=== PATIENT | female | born 1990 | race Caucasian/White ===

== ENCOUNTER 2018-09-17 10:27 | Emergency (ER) | payer BC ==
[~2018-09-17] VITALS: Ht 177.8 cm; Wt 56.8 kg
[~2018-09-17 10:27] MED LIST: ALBU6.7H INH; FLO0.4C PO; NAPR-1154 PO
[2018-09-17 11:02] LABS: CLARITY,URINE CLOUDY (Clear); COLOR,URINE RED (Yellow); PH,URINE 8.5 (4.8-8.0)
[2018-09-17 11:03] LABS: GLUCOSE, URINE NEGATIVE (Neg); KETONES,URINE NEGATIVE (Neg); LEUKOCYTE ESTERASE ,URINE NEGATIVE (Neg); NITRITES, URINE NEGATIVE (Neg); OCCULT BLOOD,URINE LARGE (Neg); PROTEIN,URINE TRACE mg/dl (Neg); UROBILINOGEN,URINE 0.2 E.U/dL (0.2-1.0)
[2018-09-17 11:04] LABS: URINE HCG NEGATIVE (NEG)
[2018-09-17 11:10] LABS: BASOPHILS % (AUTO) 0.6 % (0-1); EOSINOPHILS # (AUTO) 0.1 X10'3 (0-0.9); EOSINOPHILS % (AUTO) 1.5 % (0-6); HEMATOCRIT 42.9 % (35.0-45.0); HEMOGLOBIN 14.1 g/dl (12.0-16.0); LYMPHOCYTES # (AUTO) 1.1 X10'3 (1.1-4.8); LYMPHOCYTES % (AUTO) 15.5 % (21-51); MEAN CORPUSCULAR HEMOGLOBIN 28.1 PG (27.0-31.0); MEAN CORPUSCULAR HGB CONC 32.8 g/dL (33.0-36.5); MEAN CORPUSCULAR VOLUME 85.7 FL (78-98); MEAN PLATELET VOLUME 7.8 FL (7.4-10.4); MONOCYTES # (AUTO) 0.4 X10'3 (0-0.9); MONOCYTES % (AUTO) 6.4 % (2-12); NEUTROPHILS # (AUTO) 5.2 X10'3 (1.8-7.7); PLATELET COUNT 259 X10'3 (140-440); RED BLOOD COUNT 5.01 X10'6 (4.20-5.60); WHITE BLOOD COUNT 6.8 X10'3 (4.5-11.0)
[2018-09-17 11:18] LABS: UA COLLECTION TYPE CLN CATCH MIDSTREAM
[2018-09-17] MEDS ORDERED: ketorolac trometh inj. 60 MG/2 ML VIAL IM ONE (11:20)
[2018-09-17 11:25] LABS: BACTERIA,URINE NONE SEEN /HPF (Neg); MUCUS STRANDS NONE SEEN /LPF (Neg); RBC,URINE TNTC /HPF (0-2); SQUAMOUS EPITHELIAL CELL,UR FEW /LPF (FEW); WBC,URINE 0-4 /HPF (0-4)
[2018-09-17 11:25] LABS: ALANINE AMINOTRANSFERASE 19 U/L (12-78); ALBUMIN 4.1 G/DL (3.4-5.0); ALBUMIN/GLOBULIN RATIO 1.2 (1.1-1.5); ALKALINE PHOSPHATASE 90 IU/L (46-116); ANION GAP 9 (8-16); ASPARTATE AMINO TRANSFERASE 15 U/L (10-37); BILIRUBIN,TOTAL 0.6 MG/DL (0.1-1.0); BLOOD UREA NITROGEN 12 MG/DL (7-18); BUN/CREATININE RATIO 17.9 (6.6-38.0); CHLORIDE 105 MMOL/L (99-107); CREATININE 0.67 MG/DL (0.40-0.90); GLUCOSE 93 MG/DL (70-104); POTASSIUM 3.7 MMOL/L (3.5-5.1); SODIUM 143 MMOL/L (135-145); TOTAL PROTEIN 7.5 G/DL (6.4-8.2); eGFR > 90 ML/MIN
[2018-09-17] MEDS ORDERED: ketorolac trometh. 30mg/ml inj. IM ONE (11:25)
[2018-09-17 11:32] LABS: PROTHROMBIN TIME 10.2 SECONDS (9.0-12.0)
[2018-09-17 12:01] VITALS: BP 106/56
[2018-09-17] MEDS ORDERED: ACET-3067 PO (13:18)
== END 2018-09-17 13:26 | disposition home or self-care (01) ==
LOC: ER 10:27
DX: K59.00 Constipation, unspecified (principal); R10.12 Left upper quadrant pain; R10.814 Left lower quadrant abdominal tenderness; R42 Dizziness and giddiness; R11.0 Nausea; Z87.442 Personal history of urinary calculi; Z91.013 Allergy to seafood; Z88.2 Allergy status to sulfonamides; Z79.899 Other long term (current) drug therapy; Z90.49 Acquired absence of other specified parts of digestive tract
CPT/HCPCS: 36415; 74176; 80053; 81001; 81025; 85025; 85610; 96372; 99284; J1885

== ENCOUNTER 2018-11-06 09:01 | Emergency (ER) | payer BC ==
[~2018-11-06] VITALS: Ht 175.3 cm; Wt 59.0 kg
[2018-11-06 09:41] VITALS: BP 127/80
== END 2018-11-06 12:04 | disposition left against medical advice (07) ==
LOC: ER 09:01
DX: R42 Dizziness and giddiness (principal); Z53.21 Procedure and treatment not carried out due to patient leaving prior to being seen by health care provider

== ENCOUNTER 2019-06-25 11:51 | Emergency (ER) | payer BC ==
[~2019-06-25] VITALS: Ht 175.3 cm; Wt 61.4 kg
[~2019-06-25 11:51] MED LIST changes: -ALBU6.7H INH; +ALBU6.7H9 INH
[2019-06-25 12:32] LABS: BASOPHILS % (AUTO) 0.9 % (0-1); EOSINOPHILS # (AUTO) 0.1 X10'3 (0-0.9); EOSINOPHILS % (AUTO) 1.4 % (0-6); HEMATOCRIT 35.1 % (35.0-45.0); HEMOGLOBIN 11.7 g/dl (12.0-16.0); LYMPHOCYTES # (AUTO) 1.3 X10'3 (1.1-4.8); MEAN CORPUSCULAR HEMOGLOBIN 27.7 PG (27.0-31.0); MEAN CORPUSCULAR HGB CONC 33.4 g/dL (33.0-36.5); MEAN CORPUSCULAR VOLUME 82.7 FL (78-98); MEAN PLATELET VOLUME 7.5 FL (7.4-10.4); MONOCYTES # (AUTO) 0.3 X10'3 (0-0.9); MONOCYTES % (AUTO) 7.1 % (2-12); NEUTROPHILS % (AUTO) 62.6 % (42-75); PLATELET COUNT 213 X10'3 (140-440); RED BLOOD COUNT 4.24 X10'6 (4.20-5.60); RED CELL DISTRIBUTION WIDTH 13.9 % (11.5-14.5); WHITE BLOOD COUNT 4.8 X10'3 (4.5-11.0)
[2019-06-25 12:48] LABS: ALANINE AMINOTRANSFERASE 31 U/L (12-78); ALBUMIN 3.8 G/DL (3.4-5.0); ALBUMIN/GLOBULIN RATIO 1.2 (1.1-1.5); ALKALINE PHOSPHATASE 89 IU/L (46-116); ANION GAP 8 (8-16); ASPARTATE AMINO TRANSFERASE 26 U/L (10-37); BILIRUBIN,TOTAL 0.6 MG/DL (0.1-1.0); BLOOD UREA NITROGEN 9 MG/DL (7-18); BUN/CREATININE RATIO 11.4 (6.6-38.0); CALCIUM 8.6 MG/DL (8.5-10.1); CHLORIDE 107 MMOL/L (99-107); CREATININE 0.79 MG/DL (0.40-0.90); GLUCOSE 142 MG/DL (70-104); LIPASE 76 U/L (73-393); POTASSIUM 3.6 MMOL/L (3.5-5.1); SODIUM 143 MMOL/L (135-145); TOTAL CARBON DIOXIDE 28.5 MMOL/L (24-32); TOTAL PROTEIN 7.1 G/DL (6.4-8.2); eGFR 86 ML/MIN
[2019-06-25] MEDS ORDERED: VALA10002 PO (13:32)
[2019-06-25 13:45] VITALS: BP 131/82
== END 2019-06-25 13:47 | disposition home or self-care (01) ==
LOC: ER 11:51
DX: R23.8 Other skin changes (principal); N89.8 Other specified noninflammatory disorders of vagina; Z87.442 Personal history of urinary calculi; Z90.49 Acquired absence of other specified parts of digestive tract; Z88.2 Allergy status to sulfonamides; Z91.013 Allergy to seafood; Z79.899 Other long term (current) drug therapy
CPT/HCPCS: 36415; 80053; 83690; 85025; 99283

== ENCOUNTER 2021-03-12 20:19 | Emergency (ER) | payer BC ==
[~2021-03-12] VITALS: Ht 175.3 cm; Wt 55.5 kg
[~2021-03-12 20:19] MED LIST changes: +VALA10002 PO
[2021-03-12 20:27] VITALS: BP 138/91
[2021-03-13] MEDS ORDERED: LIDO30CR TOP (00:03)
== END 2021-03-13 00:11 | disposition home or self-care (01) ==
LOC: ER 20:20
DX: K64.4 Residual hemorrhoidal skin tags (principal); Z87.442 Personal history of urinary calculi; Z91.013 Allergy to seafood; Z88.2 Allergy status to sulfonamides; Z79.899 Other long term (current) drug therapy
CPT/HCPCS: 99283

== ENCOUNTER 2023-07-11 16:37 | Emergency (ER) | payer BC ==
[~2023-07-11] VITALS: Ht 175.3 cm; Wt 54.7 kg
[~2023-07-11 16:37] MED LIST changes: +ALBU6.7H14 INH; -ALBU6.7H9 INH; +LIDO30CR TOP
[2023-07-11 17:28] LABS: ALANINE AMINOTRANSFERASE 26 U/L (12-78); ALBUMIN 4.3 G/DL (3.4-5.0); ALBUMIN/GLOBULIN RATIO 1.3 (1.1-1.5); ALKALINE PHOSPHATASE 97 IU/L (46-116); ANION GAP 11 (8-16); ASPARTATE AMINO TRANSFERASE 17 U/L (10-37); BILIRUBIN,TOTAL 0.9 MG/DL (0.1-1.0); BLOOD UREA NITROGEN 8 MG/DL (7-18); BUN/CREATININE RATIO 10.8 (10.0-20.0); CALCIUM 8.8 MG/DL (8.5-10.1); CHLORIDE 103 MMOL/L (99-107); CREATININE 0.74 MG/DL (0.40-0.90); GLUCOSE 81 MG/DL (70-104); LIPASE 35 U/L (16-77); POTASSIUM 3.3 MMOL/L (3.5-5.1); SODIUM 139 MMOL/L (135-145); TOTAL CARBON DIOXIDE 25.5 MMOL/L (24-32); TOTAL PROTEIN 7.6 G/DL (6.4-8.2); eCRCL 93 ML/MIN; eGFR 90 ML/MIN
[2023-07-11 17:30] LABS: BASOPHILS % (AUTO) 0.5 % (0-1); EOSINOPHILS # (AUTO) 0.1 X10'3 (0-0.9); EOSINOPHILS % (AUTO) 1.7 % (0-6); HEMATOCRIT 41.5 % (35.0-45.0); HEMOGLOBIN 14.1 g/dl (12.0-16.0); LYMPHOCYTES # (AUTO) 1.4 X10'3 (1.1-4.8); LYMPHOCYTES % (AUTO) 21.8 % (21-51); MEAN CORPUSCULAR HEMOGLOBIN 29.7 PG (27.0-31.0); MEAN CORPUSCULAR VOLUME 87.2 FL (78-98); MEAN PLATELET VOLUME 8.6 FL (7.4-10.4); MONOCYTES # (AUTO) 0.6 X10'3 (0-0.9); MONOCYTES % (AUTO) 8.5 % (2-12); NEUTROPHILS # (AUTO) 4.4 X10'3 (1.8-7.7); NEUTROPHILS % (AUTO) 67.5 % (42-75); PLATELET COUNT 198 X10'3 (140-440); RED BLOOD COUNT 4.76 X10'6 (4.20-5.60); RED CELL DISTRIBUTION WIDTH 13.3 % (11.5-14.5); WHITE BLOOD COUNT 6.6 X10'3 (4.5-11.0)
[2023-07-11 17:30] LABS: URINE HCG NEGATIVE (NEG)
[2023-07-11 17:35] LABS: BILIRUBIN,URINE NEGATIVE (Neg); CLARITY,URINE CLEAR (Clear); COLOR,URINE YELLOW (Yellow); GLUCOSE, URINE NEGATIVE (Neg); KETONES,URINE NEGATIVE (Neg); LEUKOCYTE ESTERASE ,URINE SMALL (Neg); NITRITES, URINE NEGATIVE (Neg); OCCULT BLOOD,URINE NEGATIVE (Neg); PH,URINE 7.5 (4.8-8.0); PROTEIN,URINE NEGATIVE (Neg); UROBILINOGEN,URINE 0.2 E.U/dL (0.2-1.0)
[2023-07-11 18:00] LABS: UA COLLECTION TYPE CLN CATCH MIDSTREAM
[2023-07-11 18:02] LABS: BACTERIA,URINE FEW /HPF (Neg); RBC,URINE 0-2 /HPF (0-2); SQUAMOUS EPITHELIAL CELL,UR FEW /LPF (FEW)
[2023-07-11] MEDS ORDERED: ketorolac tromethamine 15mg/ml inj. IV ONE (19:35)
[2023-07-11] MEDS ORDERED: CefTRIAXone 2gm/D5W 50ml BAG 50 ML IV ONE (19:35)
[2023-07-11] MEDS ORDERED: morphine 4 MG/ML inj SYRINge IV ONE (21:05)
[2023-07-11] MEDS ORDERED: ondansetron/PF 4mg/2ml inj IV ONE (21:05)
[2023-07-11] MEDS ORDERED: normal saline 1000ml 1,000 ML IV ONE (21:30)
[2023-07-11 23:00] VITALS: BP 136/80; PULSE 88; RESP 18; TEMP 98.6; O2SAT 98
[2023-07-11] MEDS ORDERED: CEPH250T PO (23:07)
[2023-07-11] MEDS ORDERED: oxyCODONE/APAP 10/325mg tablet PO ONE (23:10)
== END 2023-07-11 23:42 | disposition home or self-care (01) ==
LOC: ER 16:38
DX: N39.0 Urinary tract infection, site not specified (principal); Z87.442 Personal history of urinary calculi; Z91.013 Allergy to seafood; Z88.2 Allergy status to sulfonamides
CPT/HCPCS: 36415; 74176; 76856; 80053; 81001; 81025; 83690; 85025; 87088; 93976; 96365; 96366; 96375; 99285; J0696; J1885; J2270; J2405; J7030

== ENCOUNTER 2024-08-15 17:43 | Emergency (ER) | payer BC ==
[~2024-08-15] VITALS: Ht 175.3 cm; Wt 56.8 kg
[~2024-08-15 17:43] MED LIST changes: -ALBU6.7H14 INH; -FLO0.4C PO; -LIDO30CR TOP; -NAPR-1154 PO; +NO HOME MEDS; -VALA10002 PO
[2024-08-15 18:05] VITALS: TEMP 98.2
[2024-08-15 20:44] LABS: BASOPHILS # (AUTO) 0.1 X10'3 (0-0.2); BASOPHILS % (AUTO) 0.3 % (0-1); EOSINOPHILS % (AUTO) 0 % (0-6); HEMATOCRIT 44.1 % (35.0-45.0); HEMOGLOBIN 15.1 g/dl (12.0-16.0); LYMPHOCYTES # (AUTO) 0.7 X10'3 (1.1-4.8); LYMPHOCYTES % (AUTO) 4.5 % (21-51); MEAN CORPUSCULAR HEMOGLOBIN 29.3 PG (27.0-31.0); MEAN CORPUSCULAR HGB CONC 34.2 g/dL (33.0-36.5); MEAN CORPUSCULAR VOLUME 85.8 FL (78-98); MEAN PLATELET VOLUME 8.6 FL (7.4-10.4); MONOCYTES # (AUTO) 0.8 X10'3 (0-0.9); MONOCYTES % (AUTO) 5.2 % (2-12); NEUTROPHILS # (AUTO) 14.6 X10'3 (1.8-7.7); PLATELET COUNT 252 X10'3 (140-440); RED BLOOD COUNT 5.14 X10'6 (4.20-5.60); RED CELL DISTRIBUTION WIDTH 13.1 % (11.5-14.5); WHITE BLOOD COUNT 16.3 X10'3 (4.5-11.0)
[2024-08-15 21:03] LABS: ALANINE AMINOTRANSFERASE 23 U/L (12-78); ALBUMIN 4.5 G/DL (3.4-5.0); ALBUMIN/GLOBULIN RATIO 1.4 (1.1-1.5); ANION GAP 11 (8-16); ASPARTATE AMINO TRANSFERASE 17 U/L (10-37); BILIRUBIN,TOTAL 0.9 MG/DL (0.1-1.0); BLOOD UREA NITROGEN 13 MG/DL (7-18); BUN/CREATININE RATIO 17.1 (10.0-20.0); CHLORIDE 104 MMOL/L (99-107); CREATININE 0.76 MG/DL (0.40-0.90); GLUCOSE 131 MG/DL (70-104); POTASSIUM 3.9 MMOL/L (3.5-5.1); SODIUM 139 MMOL/L (135-145); TOTAL CARBON DIOXIDE 23.9 MMOL/L (24-32); TOTAL PROTEIN 7.7 G/DL (6.4-8.2); eCRCL 94 ML/MIN; eGFR 87 ML/MIN
[2024-08-15 21:07] LABS: ALKALINE PHOSPHATASE 87 IU/L (46-116)
[2024-08-15 21:41] VITALS: BP 145/98; PULSE 100; RESP 18; O2SAT 98
== END 2024-08-15 21:51 | disposition home or self-care (01) ==
LOC: ER 17:44
DX: R53.81 Other malaise (principal); R07.89 Other chest pain; R53.83 Other fatigue; Z87.442 Personal history of urinary calculi; Z91.013 Allergy to seafood; Z88.2 Allergy status to sulfonamides; Z90.49 Acquired absence of other specified parts of digestive tract
CPT/HCPCS: 36415; 71045; 80053; 84484; 85025; 93005; 99285

== ENCOUNTER 2025-05-24 17:04 | Emergency (ER) | payer BC ==
[~2025-05-24] VITALS: Ht 175.3 cm; Wt 58.9 kg
[2025-05-24 17:34] LABS: MEAN PLATELET VOLUME 8.5 FL (7.4-10.4); RED CELL DISTRIBUTION WIDTH 13.2 % (11.5-14.5)
[2025-05-24 17:35] LABS: LEUKOCYTE ESTERASE ,URINE NEGATIVE (Neg); NITRITES, URINE NEGATIVE (Neg); OCCULT BLOOD,URINE NEGATIVE (Neg)
[2025-05-24 17:39] LABS: UA COLLECTION TYPE CLN CATCH MIDSTREAM
[2025-05-24 17:40] LABS: CREATININE 0.69 MG/DL (0.40-0.90); TOTAL CARBON DIOXIDE 29.9 MMOL/L (24-32); eCRCL 106 ML/MIN; eGFR > 90 ML/MIN
[2025-05-24 17:42] LABS: MUCUS STRANDS MANY /LPF (Neg); SQUAMOUS EPITHELIAL CELL,UR MANY /LPF (FEW)
--- NOTE | 2025-05-24 19:24 | Physician Documentation ---
History of Present Illness General Chief Complaint: Flank Pain Stated Complaint: KIDNEY STONES Time Seen by MD: 18:35 Primary Medical Doctor: NICKI Mode of Arrival: Ambulatory History of Present Illness Initial Comments This is a very pleasant 34-year-old female with a known history of kidney stone presents for evaluation of bilateral flank pain, right greater than left, that began yesterday without any obvious trigger, trauma provocation. The pain is waxing and waning, sharp, the particular palliating or aggravating factors. It is similar to prior kidney stones. It is accompanied by nausea and vomiting. Did not attempt to treat it. Denies any fever or chills. No concern for tobacco, alcohol or illicit substances use Medication Reconciliation Allergies: Coded Allergies: Shellfish (Verified Allergy, Severe, HIVES, 08/17/23) shellfish derived (Verified Allergy, Severe, HIVES, 08/17/23) Sulfa (Sulfonamide Antibiotics) (Verified Adverse Reaction, Unknown, FLU- LIKE SYMPTOMS, 08/17/23) Miscellaneous Medications Home Med List (No Home Medications), (Reported) Past Medical History Past Medical History: Hemorrhoids, Kidney Stones Past Surgical History: appendectomy Drug Use: none Lives with: Family Lives In: Home Occupation: employed Review of Systems ROS 10 point review of systems was performed and unless noted above in HPI is negative for acute process/complaint. Physical Exam Physical Exam Vital Signs: Temperature: 97.4, Source: Temporal, Heart Rate: 76, Respiratory Rate: 21, BP: 122/82, Pulse Oximetry: 100, Weight: 58.900 Oxygen Flow Rate: 0 Physical Exam GENERAL: Awake, alert, oriented, GCS 15, no apparent distress, non-toxic appearing, answers questions, follows commands appropriately. Examined in bed 9. HEENT: Atraumatic, normocephalic, pupils equal, extraocular muscles intact, sclerae anicteric, mucus membranes moist, oropharynx is clear, no stridor. NECK: supple, full active range of motion, trachea midline, no thyromegaly, no lymphadenopathy, no JVD. CARDIOVASCULAR: regular rate/rhythm, no murmurs/gallops/rubs, Pulses are 2+ in all extremities and symmetric. Capillary refill less than 2 seconds. PULMONARY: Nonlabored, good air movement ,no respiratory distress, speaking in full sentences, clear to auscultation bilaterally, no wheezing, no ronchi, no rales, no accessory muscle use. GASTROINTESTINAL: Soft, diffusely tender without guarding or rebound, non- distended, normal active bowel sounds, no organomegaly, no pulsatile masses, no CVA tenderness. NEUROLOGIC: Lucid with normal mental status. Normal facial symmetry. Moves all extremities symmetrically and with purpose. No truncal ataxia. Speech is fluid without evidence of dysarthria or aphasia, no focal deficits appreciated. MUSCULOSKELETAL: There is full range of motion of all extremities. There is no joint pain or joint swelling or joint erythema. There is no muscle pain or tenderness or swelling. EXTREMITIES: warm, well-perfused, no cyanosis, no clubbing, no edema, no acute deformities. Skin: warm, dry, no rashes or lesions, no jaundice, no petechiae orpurpura. No ecchymosis. PSYCHIATRIC: Normal affect, normal insight, normal concentration. Focused exam: [] Progress Results/Orders Results/Orders Orders - MADELIN ROLAND DO Ct Abdomen Pelvis (05/24/25 18:41) Hcg, Ur Ql (05/24/25 18:41) Completed Orders - MADELIN ROLAND DO Ct Abdomen Pelvis (05/24/25 18:41) Hcg Serum Ql (05/24/25 18:41) Morphine 4mg/Ml Inj. (Morphine Inj.) (05/24/25 19:20) Ondansetron Inj. (Zofran 4mg/2ml Vial) (05/24/25 19:20) Normal Saline 1000ml (0.9% Sodium Chlori (05/24/25 19:20) Iohexol 300mg/Ml 100ml Inj. (Omnipaque-3 (05/24/25 19:48) Medications Received in ER Medications (Trade) Dose Ordered Sig/Lakisha Route PRN Reason Start Time Stop Time Status Last Admin Dose Admin (morphine inj.) 4 mg ONCE ONCE IV 05/24/25 19:20 05/24/25 19:21 DC 05/24/25 19:38 4 MG (Zofran 4mg/2ml vial) 4 mg ONCE ONCE IV 05/24/25 19:20 05/24/25 19:21 DC 05/24/25 19:38 4 MG Sodium Chloride 1,000 ml @ 1,000 mls/hr ONCE ONCE IV 05/24/25 19:20 05/24/25 20:19 DC 05/24/25 19:37 1,000 MLS/HR Vital Signs 05/24/25 05/24/25 05/24/25 05/24/25 17:06 17:29 18:17 19:38 Temp 97.4 Pulse 80 76 Resp 16 21 20 B/P (MAP) 129/85 122/82 (95) Pulse Ox 100 100 O2 Flow Rate 0 05/24/25 05/24/25 19:41 20:49 Temp 97.8 Pulse 79 70 Resp 20 18 B/P (MAP) 130/90 (103) 120/80 (93) Pulse Ox 100 100 O2 Flow Rate 0 Laboratory Tests Test 05/24/25 17:12 05/24/25 17:24 05/24/25 18:56 Urine Specimen Description Cln catch midstream Urine Color Yellow Urine Clarity Slightly cloudy Urine pH 6.0 Urine Specific [place] >=1.030 Urine Protein Negative Urine Glucose (UA) Negative Urine Ketones Negative Urine Occult Blood Negative Urine Nitrite Negative Urine Bilirubin Negative Urine Urobilinogen 0.2 Urine Leukocyte Esterase Negative Urine RBC 3-10 Urine WBC 0-4 Urine Squamous Epithelial Cells Many Urine Transitional Epithelial Cells Few Urine Bacteria 3+ Urine Mucus Many Urine Culture Indicated Not ind Volume Urine Centrifuged 10 ml Urine Comment White Blood Count 7.3 Red Blood Count 5.04 Hemoglobin 14.6 Hematocrit 42.7 Mean Corpuscular Volume 84.6 Mean Corpuscular Hemoglobin 29.0 Mean Corpuscular Hemoglobin Concent 34.2 Red Cell Distribution Width 13.2 Platelet Count 237 Mean Platelet Volume 8.5 Neutrophils (%) (Auto) 72.2 Lymphocytes (%) (Auto) 19.0 L Monocytes (%) (Auto) 6.2 Eosinophils (%) (Auto) 2.0 Basophils (%) (Auto) 0.6 Neutrophils # (Auto) 5.3 Lymphocytes # (Auto) 1.4 Monocytes # (Auto) 0.4 Eosinophils # (Auto) 0.1 Basophils # (Auto) 0.0 CBC Comment Sodium Level 140 Potassium Level 3.9 Chloride Level 105 Carbon Dioxide Level 29.9 Anion Gap 5 L Blood Urea Nitrogen 12 Creatinine 0.69 Estimated GFR/1.73 m2 > 90 BUN/Creatinine Ratio 17.4 Glucose Level 106 H Calcium Level 8.7 Albumin 4.4 Chemistry Comments Human Chorionic Gonadotropin, Qual Negative Medical Decision Making Additional information obtaine: old records Findings Facility Status: ED Holds, RME process The plan was discussed with the patient, who demonstrates clear understanding of the plan and is in agreement with the plan unless otherwise noted in the chart. All questions have been answered, all concerns were addressed unless otherwise documented. I was available throughout their ED stay for frequent reassessment and questions. Differential Diagnoses (considered and possible or likely): [Differential diagnosis considered includes renal colic, less likely infected stone, acute appendicitis, acute cholecystitis, pancreatitis, gastritis, PUD, diverticulitis, mesenteric ischemia, abdominal aortic aneurysm, bowel obstruction, enteritis, colitis, fecal impaction, volvulus, IBS, inflammatory bowel disease, specific food intolerance, peritonitis, perforated viscous, malignancy, UTI, abscess, and abdominal pain NOS. Pelvic source of pain was also considered including endometritis, dysmenorrhea, ovarian cyst, ovarian torsion, PID, TOA, cervicitis, vaginitis, or uterine fibroid. History, physical exam, and workup exclude many of the more serious causes listed above. ] ??Differential Diagnoses (considered and unlikely, not requiring evaluation currently): [See above] MDM Data Please see HPI for the following: Independent Historians and external Records Review. Historian: [Patient] Independent Historians: ?[Record review] Medication Management: [Reviewed medication list] Social History and determinants: [Reviewed] Please see the body of the note for the following: Any independent interpretations of ECG, imaging studies. All vitals signs/haemodynamics, ordered tests were independently reviewed and interpreted by myself. Nursing triage complaint and vitals reviewed, additional nursing notes were reviewed as available and I agree unless otherwise noted or documented in contradiction in the chart Vital Signs: Independently reviewed Labs: Independently interpreted Imaging: Independently interpreted Old Medical Records: Independently reviewed, see HPI for relevant summary and information Pulse Oximetry: [100%] interpreted as [normal on room air] by me [Surface Lay Out Technician: [Regular Rate, Regular rhythm, no ectopy, NSR] reviewed and interpreted by me] Additionally notably showing: [Hemodynamics reviewed young lady is not febrile, not tachycardic, no evidence of hypotension respiratory distress. CBC is normal without leukocytosis, without anemia, normal platelets. Chemistry is essentially unremarkable. UA shows hematuria but nondiagnostic for UTI. It is contaminated. CT is unremarkable.] Tests considered but not ordered include: [Ultrasound has been considerably but cholelithiasis is unlikely] Social Determinants of Health Impact: Patient was evaluated in [facility], or [facility] [place] to healthcare due to below par ratio of patient to medical providers. [] Comorbid Conditions Impacting Present Evaluation and Care/Treatment: [History of kidney stones] Management Discussions with other Healthcare Providers: [None] Treatment and Disposition Medication Management (Given or considered): [Pain management]. See EMR for details Consideration for Hospitalization/Escalation/Deescalation of Care: Admission for observation has been considered, [however the patient is able to tolerate p.o., their symptoms are controlled, they are able to rely on oral medications, and their chief complaint/diagnosis can be managed on outpatient basis.] ?ED Course:?[No clinical deterioration over significant improvement.] ?Shared decision making:?[Patient is hemodynamically stable for discharge home with follow with their primary care provider. [ ] Specific and cautious return precautions provided and discussed with full understanding. Any incidental findings were also discussed and follow up recommendations given. [] All questions answered. Patient/family were able to verbalize back return precautions. Patient/family agree to plan. Copies of imaging and laboratory studies were provided.] Code status:?FULL Please see the full Electronic Medical Record for full details of nursing documentation, medications list, other records of complete past medical history and conditions, vital signs, laboratory studies, and any radiologic study interpretations by radiologists. Portions of this note were completed using [employer] dictation software and as a result there may exist minor errors in spelling. I have reviewed elements of past family and social history and agree as included in note. Differential Diagnosis See above Departure Disposition: HOME / SELF CARE / HOMELESS Impression: Primary Impression: Flank pain Additional Impression: Nausea and vomiting Condition: Improved Discharge Instructions: Flank Pain, Adult Additional Instructions: There is no clear explanation of your pain, however there is no evidence of kidney stone on your CT scan Referrals: NO PRIMARY CARE PROVIDER (PCP) Prescriptions Hydrocodone Bit/Acetaminophen 5/325 MG ([place] 5/325 MG) 5 Mg/325 Mg Tablet 1 TAB PO Q6H PRN for pain, #14 TAB Prov: MADELIN ROLAND DO 05/24/25 Naproxen (Naproxen) 375 Mg Tablet 1 TAB PO Q12H for pain for 30 Days, #60 TAB 0 Refills with food Prov: MADELIN ROLAND DO 05/24/25 Dicyclomine Hcl* (Bentyl*) 10 Mg Capsule 2 CAP PO Q8H PRN for ABDOMINAL PAIN for 7 Days, #42 CAP Prov: MADELIN ROLAND DO 05/24/25 ONDANSETRON ODT 4mg tablet (ONDANSETRON ODT) 4 Mg Tab.rapdis 1 TAB PO Q6H PRN PRN for nausea/vomiting for 4 Days, #16 TAB 0 Refills Prov: MADELIN ROLAND DO 05/24/25 Education Educated: Patient Educated regarding: diagnosis, treatment, prognosis, need for follow up Signature Scribe Signature: No scribe Attestation: Date: May 24, 2025 Time: 19:24 This note accurately reflects clinical decisions, work performed by myself, DO LUAN Villarreal NICHOLAS M DO May 24, 2025 19:24
[2025-05-24] MEDS: normal saline 1000ml 1,000 ML IV ONE (19:37)
[2025-05-24] MEDS: ondansetron/PF 4mg/2ml inj IV ONE (19:38)
[2025-05-24] MEDS: morphine 4 MG/ML inj SYRINge IV ONE (19:38)
[2025-05-24 19:41] VITALS: TEMP 97.8
[2025-05-24 19:42] LABS: HCG SERUM QL NEGATIVE
[2025-05-24] MEDS ORDERED: iohexol 300mg/ml 100ml inj. ONE (19:48)
--- NOTE | 2025-05-24 20:23 | RADIOLOGY REPORT ---
Exam: CT CT ABDOMEN PELVIS W/ IV CONTRAST History: R sided abd/flank pain COMPARISON: CT CT ABDOMEN PELVIS on DOS: 07/11/23, CT ABDOMEN PELVIS on DOS: 09/17/18 Technique: Multidetector spiral CT of the abdomen and pelvis was performed from lung bases to pubic symphysis. Intravenous contrast was administered during this examination. Portal venous imaging was obtained. Axial, coronal and sagittal multiplanar reformats were performed by the technologist on a separate workstation. Radiation Dose : 1. Abdomen/Pelvis: CTDIvol 8.23 mGy, DLP 433.16 mGy*cm. CONTRAST: Type of contrast: Contrast injected: ml Contrast ingested: ml Findings: Lung Bases: No acute or significant lung base finding. Normal heart size. No pleural or pericardial effusion. Liver: The liver is normal in size. No focal lesions. Normal hepatic vascular enhancement. Gallbladder and Biliary Tree: Unremarkable Spleen: Unremarkable Pancreas: The pancreas is normal in appearance without focal lesions or abnormal enhancement. Adrenal Glands: Unremarkable Kidneys: No hydronephrosis. Bladder: Unremarkable Bowel: The stomach is grossly normal in appearance. Small bowel and colon are normal in caliber and distribution. The appendix is surgically absent. Ascites: Small volume pelvic ascites. Lymphadenopathy: No mesenteric, retroperitoneal or periportal lymphadenopathy. Abdominal Wall and Mesentery: Unremarkable. Vasculature: The visualized abdominal aorta is normal in size and caliber. Abdominal and pelvic vessels demonstrate normal enhancement. Pelvic Organs: Unremarkable status post hysterectomy Musculoskeletal: No aggressive focal bony lesions, acute fractures or dislocation. IMPRESSION: 1. No acute abdominal or pelvic finding. 2. Small volume pelvic free fluid. Radiation optimization: All CT scans at this facility use at least one of these dose optimization techniques: automated exposure control mA and/or kV adjustment per patient size (includes targeted exams where dose is matched to clinical indication) or iterative reconstruction.
[2025-05-24 20:49] VITALS: O2SAT 100
[2025-05-24] MEDS ORDERED: HYDR-3965 PO (21:08)
[2025-05-24] MEDS ORDERED: ONDA-243 PO (21:08)
[2025-05-24] MEDS ORDERED: DICY10CA88 PO (21:08)
[2025-05-24] MEDS ORDERED: NAPR-1166 PO (21:08)
[2025-05-24] MEDS: HYDROcodone/acetaminophen 5mg/325mg tablet PO ONE (21:35)
[2025-05-24 21:44] VITALS: BP 120/85; PULSE 80; RESP 18
== END 2025-05-24 21:46 | disposition home or self-care (01) ==
LOC: ER 17:04
DX: R10.A3 Flank pain, bilateral (principal); R11.2 Nausea with vomiting, unspecified; Z90.49 Acquired absence of other specified parts of digestive tract; Z88.2 Allergy status to sulfonamides; Z91.013 Allergy to seafood; Z87.442 Personal history of urinary calculi; Z87.19 Personal history of other diseases of the digestive system
CPT/HCPCS: 36415; 74177; 80048; 81001; 84703; 85025; 96361; 96374; 96375; 99285; J2270; J2405; J7030; Q9967